=== PATIENT | male | born 1975 ===

== ENCOUNTER → 2017-12-13 | Outpatient (CLI) | payer OTHER ==
[~2017-12-13] VITALS: Ht 182.9 cm; Wt 108.9 kg
== END | disposition home or self-care (01) ==
LOC: PPHC 12:00
DX: H53.8 Other visual disturbances (principal)

== ENCOUNTER → 2018-01-18 | Outpatient (CLI) | payer OTHER | END | disposition home or self-care (01) | LOC: RAD 10:55 | DX: R06.02 Shortness of breath (principal) ==

== ENCOUNTER → 2018-01-18 | Outpatient (CLI) | payer OTHER ==
[~2018-01-18] VITALS: Ht 152.4 cm; Wt 98.9 kg
== END | disposition home or self-care (01) ==
LOC: PPHC 09:23
DX: H53.8 Other visual disturbances (principal)

== ENCOUNTER → 2018-01-21 | Outpatient (CLI) | payer OTHER ==
[~2018-01-21] VITALS: Ht 152.4 cm; Wt 101.2 kg
== END | disposition home or self-care (01) ==
LOC: PPHC 10:10
DX: Z01.89 Encounter for other specified special examinations (principal)